=== PATIENT | male | born 1970 | race Caucasian/White ===

== ENCOUNTER 2021-07-06 22:40 | Emergency (ER) | payer OTHER, SELFPAY ==
[2021-07-06 22:51] VITALS: BP 124/79; PULSE 89; RESP 22; O2SAT 95; BMI 30.9
--- NOTE | 2021-07-06 23:00 | XR_ITS ---
PROCEDURE INFORMATION: Exam: XR Chest Exam date and time: 07/06/2021 11:00 PM Age: 51 years old Clinical indication: Cough and shortness of breath; Patient HX: SOB cough; Additional info: Shortness of air TECHNIQUE: Imaging protocol: XR of the chest. Views: 2 views. COMPARISON: No relevant prior studies available. FINDINGS: Lungs: Unremarkable. No consolidation. Pleural spaces: Unremarkable. No pleural effusion. No pneumothorax. Heart/Mediastinum: Unremarkable. No cardiomegaly. Bones/joints: Unremarkable. IMPRESSION: No acute findings.
[2021-07-06 23:11] LABS: Influenza A, PCR Not Detected (NotDetected); Influenza B, PCR Not Detected (NotDetected)
[2021-07-06 23:15] LABS: Basophils # 0.1 K/mm3 (0-0.2); Basophils % 1.3 % (0.1-2.0); Eosinophils % 0.6 % (0.1-12.0); Hematocrit 47.5 % (42.0-52.0); Hemoglobin 16.2 g/dL (14.1-18.0); Lymphocytes # 1.7 K/mm3 (0.7-4.5); Lymphocytes % 26.6 % (10-50); Mean Corpuscular HGB Conc 34.1 g/dL (31.8-35.4); Mean Corpuscular Hemoglobin 30.5 pg (27.0-31.2); Mean Corpuscular Volume 89.3 fl (80-94); Mean Platelet Volume 8.3 fl (7.4-10.4); Monocytes # 0.5 K/mm3 (0.1-1.0); Monocytes % 8.2 % (1.7-9.3); Neutrophils # 4.1 K/mm3 (1.8-7.8); Neutrophils % 63.3 % (37.0-80.0); Platelet Count 164 K/mm3 (142-424); Red Blood Count 5.32 M/mm3 (4.60-6.20); Red Cell Distribution Width 14.2 % (11.5-17.5); White Blood Count 6.5 K/mm3 (4.8-10.8)
[2021-07-06 23:17] LABS: Chloride 101 mmol/L (98-107)
[2021-07-06 23:18] LABS: Potassium 3.9 mmoL/L (3.5-5.1); Sodium 139 mmol/L (136-145)
[2021-07-06 23:20] LABS: Alanine Aminotransferase 71 U/L (12-78); Alkaline Phosphatase 111 U/L (38-126); Aspartate Amino Transferase 58 U/L (17-59); Bilirubin,Total 0.7 mg/dl (0.2-1.3); Blood Urea Nitrogen 14 mg/dl (9-20); Creatinine Clearance Estimated 100 mL/min (50-200); Estimated Glomerular Filt Rate 58 ml/min (>60); GFR (African American) 70 ML/MIN (>60)
[2021-07-06 23:21] LABS: Albumin Level 4.6 g/dl (3.5-5.0); Albumin/Globulin Ratio 1.6 (1.1-1.8); Anion Gap 14.9 mEq/L (5-15); Calcium 8.7 mg/dl (8.4-10.2); Carbon Dioxide 27 mmol/L (22.0-30.0); Globulin 2.9 g/dL (1.3-3.2); Glucose 180 mg/dl (74-100); Total Protein,Serum 7.5 g/dl (6.3-8.2)
[2021-07-06 23:31] VITALS: BP 124/76; PULSE 80; RESP 16; O2SAT 98
[2021-07-06 23:34] LABS: Troponin I < 0.01 ng/ml (0.00-0.034)
--- NOTE | 2021-07-06 23:34 | HMH.EDSOB ---
ED Disposition Clinical Impression: COVID-19 Disposition: Home, Self-Care Condition on Discharge: Good Instructions: DI for COVID-19 (Suspected or Confirmed ) Additional Instructions: fluids and call pcp on thursday Referrals: Maggie Douglas MD [Primary Care Provider] - - Critical Care Critical Care Time: No Attestation: On 07/06/21, the high probability of a clinically significant, sudden or life threatening deterioration of the following system(s) required my full and direct attention, intervention and personal management. The time I documented below is in addition to time spent performing reported procedures but includes the following listed in this critical care notation. Medical Decision Making - Medical Records Medical records reviewed: Yes: I reviewed the patient's medical records. - Sky Inquiry Pt receiving controlled substance: No Vital Signs: 07/06/21 22:51 Pulse Rate [Left Brachial] 89 Respiratory Rate 22 Blood Pressure [Left Arm] 124/79 Blood Pressure Mean [Left Arm] 94 Blood Pressure Source [Left Arm] Automatic Cuff Blood Pressure Position [Left Arm] Sitting 02 Sat by Pulse Oximetry 95 Oxygen Delivery Method Room Air - Lab Data Lab results reviewed: Yes: I reviewed the patient's lab results. Lab Results 07/06/21 22:45: Sodium 139, Potassium 3.9, Chloride 101, Carbon Dioxide 27, Anion Gap 14.9, BUN 14, Creatinine 1.30 H, Estimated Creat Clear 100, Estimated GFR 58 L, Est GFR ( Amer) 70, Glucose 180 H, Calcium 8.7, Total Bilirubin 0.7, AST 58, ALT 71, Alkaline Phosphatase 111, Troponin I < 0.01, Total Protein 7.5, Albumin 4.6, Globulin 2.9, Albumin/Globulin Ratio 1.6 07/06/21 22:45: WBC 6.5, RBC 5.32, Hgb 16.2, Hct 47.5, MCV 89.3, MCH 30.5, MCHC 34.1, RDW 14.2, Plt Count 164, MPV 8.3, Neut % (Auto) 63.3, Lymph % (Auto) 26.6, [place] % (Auto) 8.2, Eos % (Auto) 0.6, Baso % (Auto) 1.3, Neut # (Auto) 4.1, Lymph # (Auto) 1.7, [place] # (Auto) 0.5, Eos # (Auto) 0.0, Baso # (Auto) 0.1 Result diagrams: 07/06/21 22:45 07/06/21 22:45 Orders (Tests/Meds): ED MEDICATIONS Generic Name Dose Route Start Last Admin Trade Name Freq PRN Reason Stop Dose Admin Sodium Chloride 1,000 mls @ 999 mls/hr 07/06/21 23:00 Sod Chlor 0.9% 1000ml Bag IV 07/07/21 00:00 .Q1H1M JORDAN Discontinued Medications Generic Name Dose Route Start Last Admin Trade Name Freq PRN Reason Stop Dose Admin Dexamethasone Sodium Phosphate 10 mg 07/06/21 22:59 Dexamethasone 4mg/Ml 5ml Mdv IV 07/06/21 23:00 ONCE ONE Ketorolac Tromethamine 30 mg 07/06/21 22:59 Ketorolac 30mg/Ml Vial IV 07/06/21 23:00 ONCE ONE Ondansetron HCl 4 mg 07/06/21 22:59 Ondansetron 4mg/2ml Vial IV 07/06/21 23:00 ONCE ONE ORDERS Category Date Time Status Rapid PCR Covid and Flu A/B Stat Lab 07/06/21 22:45 Received Troponin I Q3H Lab 07/07/21 02:15 Ordered Troponin I Q3H Lab 07/07/21 05:15 Ordered - Radiology Data #1 Image(s): Chest Image Reviewed: Yes I have reviewed radiologist's interpretation Preliminary Findings: Normal/NAD Medical Decision Narrative: has covid -19 but stable at this time Resp/SOB HPI - General Chief Complaint: Shortness of Breath/Dyspnea Stated Complaint: covid+ cough, runny nose, weakness Time Seen by Provider: 07/06/21 23:00 Mode of Arrival: Family Vehicle Source of Information: Patient, Medical Record Limitations: No Limitations Description of Symptoms (Recalled from ER Triage Doc. by RN): pt was diagnosed with covid on thursday, has had decreased energy and little to no appetite. states his cough occasionally makes him have dyspnea. his nose is sniffly . - History of Present Illness pt with recent dx of covid-19 has uri sx and cough MD Complaint: shortness of breath Severity: moderate Associated symptoms: denies other symptoms Treatment prior to arrival: none - Related Data Home oxygen amount: none Allergies Allergy/AdvReac Type
[2021-07-06 23:37] LABS: Coronavirus 19, PCR Detected (NotDetected)
--- NOTE | 2021-07-06 23:37 | PC.NURSE ---
notified of + Positive COVID
[2021-07-07 00:05] VITALS: BP 121/70; PULSE 78; RESP 18; TEMP 36.8; O2SAT 98
== END 2021-07-07 00:09 | disposition home or self-care (01) ==
PROVIDERS: Emergency Provider Emergency Medicine; PCP Family Medicine
DX: U07.1 COVID-19 (principal)
CPT/HCPCS: 71046; 80053; 84484; 85025; 96365; 96375; 99282; J2405; U0003

== ENCOUNTER 2021-07-08 07:33 | Emergency (ER) | payer OTHER, SELFPAY ==
[2021-07-08] VITALS (7 sets, daily range): BP systolic 111–139; BP diastolic 71–93; PULSE 77–98; RESP 16–24; TEMP 37.2–39.2; O2SAT 91–95; BMI 31.8
--- NOTE | 2021-07-08 07:42 | XR_ITS ---
PROCEDURE: XR CHEST PORTABLE CLINICAL HISTORY: SOB COMPARISON: No exams were available for comparison FINDINGS: The cardiomediastinal silhouette and pulmonary vascularity are within normal limits. The lungs are clear without infiltrates, suspicious nodules, or pleural effusions. Small nodular opacity is present in the left mid to lower lung zone and may be due to a granuloma. Follow-up may confirm stability No acute bony abnormalities. IMPRESSION: No change with no acute finding Dictated by: Sid Raya MD 07/08/2021 08:10 Sid Raya MD in [facility] 07/08/2021 08:10
[2021-07-08 08:09] LABS: Basophils % 0.5 % (0.1-2.0); Eosinophils % 0.2 % (0.1-12.0); Hematocrit 44.6 % (42.0-52.0); Hemoglobin 15.5 g/dL (14.1-18.0); Lymphocytes # 1.4 K/mm3 (0.7-4.5); Lymphocytes % 17.4 % (10-50); Mean Corpuscular HGB Conc 34.8 g/dL (31.8-35.4); Mean Corpuscular Hemoglobin 30.3 pg (27.0-31.2); Mean Corpuscular Volume 87.1 fl (80-94); Mean Platelet Volume 8.4 fl (7.4-10.4); Monocytes # 0.5 K/mm3 (0.1-1.0); Monocytes % 6.1 % (1.7-9.3); Neutrophils # 6.3 K/mm3 (1.8-7.8); Neutrophils % 75.8 % (37.0-80.0); Platelet Count 149 K/mm3 (142-424); Red Blood Count 5.11 M/mm3 (4.60-6.20); Red Cell Distribution Width 14.4 % (11.5-17.5); White Blood Count 8.3 K/mm3 (4.8-10.8)
--- NOTE | 2021-07-08 08:12 | ECG_ITS ---
APPROVED REPORT Exam: Resting ECG HR:91 bpm ECG Measurements Heart Rate 91 AXES [place] 126 P 0 QRSd 80 QRS 51 QT 344 T 40 QTc 423 Conclusion Normal sinus rhythm Normal ECG Electronically signed by : Thanh Quigley MD 07/10/2021 11:50:18
[2021-07-08 08:19] LABS: Chloride 103 mmol/L (98-107); Sodium 138 mmol/L (136-145)
[2021-07-08 08:20] LABS: Potassium 4.2 mmoL/L (3.5-5.1)
[2021-07-08 08:22] LABS: Alanine Aminotransferase 65 U/L (12-78); Albumin Level 4.4 g/dl (3.5-5.0); Albumin/Globulin Ratio 1.7 (1.1-1.8); Alkaline Phosphatase 110 U/L (38-126); Anion Gap 12.2 mEq/L (5-15); Aspartate Amino Transferase 47 U/L (17-59); Bilirubin,Total 0.8 mg/dl (0.2-1.3); Blood Urea Nitrogen 19 mg/dl (9-20); Calcium 8.4 mg/dl (8.4-10.2); Carbon Dioxide 27 mmol/L (22.0-30.0); Creatinine Clearance Estimated 118 mL/min (50-200); Estimated Glomerular Filt Rate 70 ml/min (>60); GFR (African American) 85 ML/MIN (>60); Globulin 2.6 g/dL (1.3-3.2); Glucose 166 mg/dl (74-100)
[2021-07-08 08:42] LABS: Lactic Acid 1.3 mmol/L (0.7-2.1)
--- NOTE | 2021-07-08 09:08 | [facility].EDGENADL ---
ED Disposition Clinical Impression: Pneumonia due to COVID-19 virus Disposition: Home, Self-Care Condition on Discharge: Good Instructions: DI for COVID-19 (Suspected or Confirmed ) Prescriptions: Albuterol Sulfate [Albuterol Sulfate Hfa] 1 puff IH Q6 #1 [email or web address] Prescription Printed Ondansetron [Zofran 4mg ODT] 4 mg PO BIDP PRN #10 tab PRN Reason: Nausea And Vomiting Prescription Printed Referrals: Maggie Douglas MD [Primary Care Provider] - - Critical Care Critical Care Time: No Attestation: On 07/08/21, the high probability of a clinically significant, sudden or life threatening deterioration of the following system(s) required my full and direct attention, intervention and personal management. The time I documented below is in addition to time spent performing reported procedures but includes the following listed in this critical care notation. Medical Decision Making - Medical Records Medical records reviewed: Yes: I reviewed the patient's medical records. - Sky Inquiry Pt receiving controlled substance: No Vital Signs: 07/08/21 07:34 07/08/21 08:17 07/08/21 09:00 Temperature 102.6 F H Temperature Source Oral Pulse Rate 93 H 81 Pulse Rate [Radial] 98 H Respiratory Rate 24 16 20 Blood Pressure 139/84 125/79 Blood Pressure [Right Arm] 128/93 H Blood Pressure Mean [Right Arm] 104 Blood Pressure Position Blood Pressure Position [Right Arm] Sitting 02 Sat by Pulse Oximetry 94 L 91 L 92 L Oxygen Delivery Method Room Air 07/08/21 09:33 07/08/21 10:00 07/08/21 10:15 Temperature 99.1 F Temperature Source Oral Pulse Rate 80 77 78 Pulse Rate [Radial] Respiratory Rate 21 20 Blood Pressure 115/71 115/71 111/72 Blood Pressure [Right Arm] Blood Pressure Mean [Right Arm] Blood Pressure Position Sitting Blood Pressure Position [Right Arm] 02 Sat by Pulse Oximetry 93 L 93 L Oxygen Delivery Method Room Air - Lab Data Lab Results 07/08/21 07:55: WBC 8.3 D, RBC 5.11, Hgb 15.5, Hct 44.6, MCV 87.1, MCH 30.3, MCHC 34.8, RDW 14.4, Plt Count 149, MPV 8.4, Neut % (Auto) 75.8, Lymph % (Auto) 17.4, [place] % (Auto) 6.1, Eos % (Auto) 0.2, Baso % (Auto) 0.5, Neut # (Auto) 6.3, Lymph # (Auto) 1.4, [place] # (Auto) 0.5, Eos # (Auto) 0.0, Baso # (Auto) 0.0 07/08/21 07:55: Sodium 138, Potassium 4.2, Chloride 103, Carbon Dioxide 27, Anion Gap 12.2, BUN 19 D, Creatinine 1.10, Estimated Creat Clear 118, Estimated GFR 70, Est GFR ( Amer) 85 D, Glucose 166 H, Calcium 8.4, Total Bilirubin 0.8, AST 47, ALT 65, Alkaline Phosphatase 110, Total Protein 7.0, Albumin 4.4, Globulin 2.6, Albumin/Globulin Ratio 1.7 07/08/21 07:55: Lactate 1.3 Result diagrams: 07/08/21 07:55 07/08/21 07:55 Orders (Tests/Meds): ED MEDICATIONS Generic Name Dose Route Start Last Admin Trade Name Camilo PRN Reason Stop Dose Admin Diphenhydramine HCl 25 mg 07/08/21 09:30 Diphenhydramine 50mg/Ml Vial IV 07/08/21 16:00 ONCE PRN INFUSION REACTION Hydrocortisone Sodium Succinate 100 mg 07/08/21 09:30 Hydrocortisone Sod Succinate 100mg Vial IV 07/08/21 16:00 ONCE PRN INFUSION REACTION Sodium Chloride 1,000 mls @ 100 mls/hr 07/08/21 09:30 Sod Chlor 0.9% 1000ml Bag IV 07/08/21 16:00 .Q10H PRN INFUSION REACTION Loratadine 10 mg 07/08/21 09:30 Loratadine 10mg Tablet PO 07/08/21 16:00 ONCE PRN INFUSION REACTION Discontinued Medications Generic Name Dose Route Start Last Admin Trade Name Freq PRN Reason Stop Dose Admin Dexamethasone Sodium Phosphate 10 mg 07/08/21 08:19 07/08/21 08:23 Dexamethasone 4mg/Ml 5ml Mdv IV 07/08/21 08:20 10 mg ONCE ONE Administration Sodium Chloride 1,000 mls @ 999 mls/hr 07/08/21 07:45 07/08/21 08:06 Sod Chlor 0.9% 1000ml Bag IV 07/08/21 08:45 999 mls/hr .Q1H1M JORDAN Administration Casirivimab/Imdevimab 10 ml/ 110 mls @ 220 mls/hr 07/08/21 09:30 07/08/21 10:00 Sodium Chlo
== END 2021-07-08 12:16 | disposition home or self-care (01) ==
PROVIDERS: Emergency Provider Emergency Medicine; PCP Family Medicine
DX: U07.1 COVID-19 (principal); J12.82 Pneumonia due to coronavirus disease 2019
CPT/HCPCS: 71045; 80053; 83605; 85025; 87040; 93005; 96365; 96367; 96375; 99283; J2405